=== PATIENT | male | born 1960 | race American Indian/Alaskan Native ===

== ENCOUNTER 2021-02-09 06:48 | Day surgery (SDC) | payer MEDICAID ==
[~2021-02-09 06:48] MED LIST: ACETAMINOPHEN 500 MG TAB PO SCH; LACTATED RINGERS 1,000 ML IV SCH; MIDAZOLAM 2 MG/2 ML INJ IV NR
[2021-02-09] MEDS ORDERED: propofoL 200 MG/20 ML VIAL IV ONE (07:24)
[2021-02-09] MEDS ORDERED: HYDROmorphone 1 MG/1 ML INJ ONE (07:24)
[2021-02-09] MEDS ORDERED: LIDOCAINE MPF (2%) 20 MG/1 ML VIAL 5 ML ONE (07:24)
[2021-02-09] MEDS ORDERED: WATER FOR IRRIG STERILE 1,500 ML BOTTLE IR ONE ×2 (07:26→08:27)
[2021-02-09] MEDS ORDERED: IOHEXOL 300 MG/ML 50ML IV ONE ×2 (07:27→08:27)
[2021-02-09] MEDS ORDERED: ONDANSETRON 4 MG/2 ML INJ IV PRN (07:31)
[2021-02-09] MEDS ORDERED: fentaNYL 100 MCG/2 ML INJ IV PRN (07:31)
--- NOTE | 2021-02-09 07:31 | Anesthesia Consultation ---
Anesthesia Consult and Med Hx Date of service: 02/09/21 - Airway Anesthetic Teeth Evaluation: Dentures ROM Head & Neck: Adequate Mental/Hyoid Distance: Adequate Mallampati Class: Class II Intubation Access Assessment: Probably Good - Pre-Operative Health Status ASA Pre-Surgery Classification: ASA3 Proposed Anesthetic Plan: General - Pulmonary Hx Smoking: Yes (former smoker quit 20yrs ) Hx Respiratory Symptoms: No - Cardiovascular System Hx Hypertension: Yes Hx Heart Attack/AMI: No Hx Percutaneous Transluminal Coronary Angioplasty (PTCA): No - Central Nervous System CVA: No Hx Psychiatric Problems: Yes (anxiety) - Gastrointestinal Hx Gastroesophageal Reflux Disease: Yes - Endocrine Hx Renal Disease: Yes (CKD) Hx Liver Disease: No Hx Insulin Dependent Diabetes: No Hx Non-Insulin Dependent Diabetes: No Hx Thyroid Disease: No - Other Systems Hx Obesity: No - Additional Comments Anesthesia Medical History Comments: No hx anesthetic complications.
--- NOTE | 2021-02-09 07:31 | Anesthesia Day of Surgery ---
Anesthesia Day of Surgery - Day of Surgery Patient Examined: Yes Patient H&P Reviewed: Yes Patient is NPO: Yes
[2021-02-09] MEDS ORDERED: ceFAZolin/STERILE WATER 2 GM/20 ML SYRINGE IV NR (08:00)
[2021-02-09] MEDS ORDERED: ceFAZolin/Water 2 GM/20 ML 2 GM/20 ML SYRINGE IV ONE (08:10)
[2021-02-09] MEDS ORDERED: ONDANSETRON 4 MG/2 ML INJ ONE (08:43)
--- NOTE | 2021-02-09 08:57 | Post Operative Note ---
Date of procedure: 02/09/21 Pre-op diagnosis: stricture Post-op diagnosis: same Findings: as above Procedure: cysto dviu rpgs Anesthesia: GETA Surgeon: OSWALD NEWTON Estimated blood loss: none Pathology: none Condition: stable Disposition: PACU
[2021-02-09] MEDS ORDERED: WATER FOR IRRIG STERILE 2000 ML IR ONE (08:58)
--- NOTE | 2021-02-09 08:58 | Discharge Summary ---
Short Stay Discharge Plan Activity: other (no strianing ) Weight Bearing Status: Full Weight Bearing Diet: low fat, low cholesterol, low salt Special Instructions: other (teach cath care ) Durable Medical Equipment Needed Upon Discharge: other (phillips ) Follow up with: PRIMARY CARE, [Primary Care Provider] - 7 Days OSWALD NEWTON MD [Staff Physician] - 7 Days
--- NOTE | 2021-02-09 09:09 | Operative Report ---
DATE OF SURGERY: 02/09/2021 PREOPERATIVE DIAGNOSES: Urethral stricture, hematuria, previous urinary retention. POSTOPERATIVE DIAGNOSES: Urethral stricture, hematuria, previous urinary retention. PROCEDURE PERFORMED: Cystoscopy, direct vision internal urethrotomy retrograde. SURGEON: Tulio Edwards MD ANESTHESIA: General. FINDINGS: This is a gentleman with recurrent stricture. He has a bulbous urethral stricture. We were going to dilate in the office, he was having too much pain, so we brought him to the surgery. DESCRIPTION OF PROCEDURE: Patient was brought to the operating room and placed on the operating table. Following induction of anesthesia, placed in the lithotomy position, prepped and draped in usual sterile fashion. The stricture was well visualized. It was longer than I anticipated. Approximately a 1.5 cm stricture. A wire coiled in the bladder under fluoroscopic guidance and this was opened. It was now wide open. There was dilatation proximally. Bladder was 1 to 2+ trabeculated. The patient tolerated the procedure well. Retrograde showed some air bubbles on the right, which drained. No papillary lesions. The patient tolerated the procedure well. A #22 Parmele was placed and brought to recovery in stable condition. TID: [id number] RECEIPT: [id number] GRADY/ELLEN
[2021-02-09 10:49] VITALS: BP 138/86
--- NOTE | 2021-02-09 13:45 | Post Anesthesia Evaluation ---
- Post Anesthesia Evaluation Patient Participated: Yes Airway Patent: Yes Stable Respiratory Function: Yes Nausea/Vomiting: No Temp > 96.8F: Yes Pain Manageable: Yes Adequeate Hydration: Yes Anesthesia Complications: No
--- NOTE | 2021-02-09 16:11 | Fluoroscopy Report ---
Retrograde urography INDICATION: Urethral stricture. Flank pain IMPRESSION: Retrograde injected contrast within the right and left ureter demonstrate a normal-appear ing left ureter and multiple focal areas of short segment narrowing within the distal right ureter wi th associated mild right-sided hydronephrosis. Fluoroscopy time: 37 seconds. Fluoroscopic images: 7. Signer Name: Bryant Bey MD Signed: 02/09/2021 4:07 PM Workstation Name: [id number]
== END 2021-02-09 10:50 | disposition home or self-care (01) ==
LOC: OR 06:48
PROVIDERS: ATTEND Urology
DX: N35.812 Other bulbous urethral stricture, male (principal); R31.9 Hematuria, unspecified; R33.9 Retention of urine, unspecified; G43.909 Migraine, unspecified, not intractable, without status migrainosus; E78.00 Pure hypercholesterolemia, unspecified; I12.9 Hypertensive chronic kidney disease with stage 1 through stage 4 chronic kidney disease, or unspecified chronic kidney disease; K21.9 Gastro-esophageal reflux disease without esophagitis; F41.9 Anxiety disorder, unspecified; Z79.899 Other long term (current) drug therapy; Z87.891 Personal history of nicotine dependence; Z98.890 Other specified postprocedural states; N18.9 Chronic kidney disease, unspecified
CPT/HCPCS: 36415; 52281; 74420; 80048; A4217; C1758; C1769; J0690; J1170; J2250; J2405; J2704; J7120; Q9967